=== PATIENT | female | born 1945 | race Asian ===

== ENCOUNTER 2019-06-28 02:08 | Emergency (ER) | payer OTHER ==
--- NOTE | 2019-06-28 02:17 | PDOC ---
History of Present Illness - General Chief Complaint: Injury Stated Complaint: FALL Time Seen by Provider: 06/28/19 02:16 - History of Present Illness Initial Comments: 06/28/19 04:22 73 year old with no past medical history fell down stairs has nosebleed and nasal bridge pain FAST- negative Past History - Past Medical History Allergies/Adverse Reactions: Allergies Allergy/AdvReac Type Severity Reaction Status Date / Time No Known Allergies Allergy Verified 06/28/19 02:24 Home Medications: Ambulatory Orders Pseudoephedrine HCl [Sudafed] 60 mg PO BID #30 tablet 06/28/19 *DC/Admit/Observation/Transfer Diagnosis at time of Disposition: Nasal bone fractures - Discharge Dispostion Disposition: HOME Condition at time of disposition: Fair Decision to Admit order: No - Prescriptions Prescriptions: Pseudoephedrine HCl [Sudafed] 60 mg PO BID #30 tablet - Referrals Referrals: Yoandy Carbajal MD [Staff Physician] - - Patient Instructions Printed Discharge Instructions: Skull and Facial Fracture Additional Instructions: You were seen in the ED for complaints of nasal bone pain after a fall In the ED you were evaluated with imaging. Your results were significant for a nasal bridge fracture There does not appear to be an acute need for immediate hospitalization. You are advised to follow up with your Primary Care Physician within 1 week. You were given a referral to ENT Specialist. Take over the counter Tylenol and Motrin. Return to the ED immediately if you experience continued nose bleed, difficulty breathing - Post Discharge Activity
[2019-06-28] MEDS ORDERED: ACETAMINOPHEN 325 MG TABLET (FP) PO ONE ×2 (02:26)
[2019-06-28] MEDS ORDERED: ACETAMINOPHEN 325 MG TABLET (FP) ONE (02:34)
[2019-06-28 02:42] VITALS: BMI 22.6
--- NOTE | 2019-06-28 03:07 | PDOC ---
Attending Attestation - Resident Resident Name: Poly Wren - ED Attending Attestation I have performed the following: I have examined & evaluated the patient, The case was reviewed & discussed with the resident, I agree w/resident's findings & plan - HPI HPI: 06/28/19 03:08 Pt fell down 15 basement steps. Walked up and woke her grandson and he brought her to the ER. - Physicial Exam PE: 06/28/19 05:12 Agree with resident exam 06/28/19 05:45 Pt has no septal hematome 06/28/19 05:45 HEENT normal except for her depressed nasal bone fracture. - Medical Decision Making 06/28/19 03:07 Pt has nosebleed and likely nasal fracture after falling down basement steps. 06/28/19 05:12 Patient Name: JOLLY FAIRCHILD THIS IS A PRELIMINARY REPORT FROM [facility] DATE OF SERVICE: 2019-06-28 04:32:33 IMAGES: 142 EXAM: CERVICAL SPINE CT W/O CONTR / FACIAL BONES CT W/O CONTRAST / HEAD CT WITHOUT CONTRAST HISTORY: Rule out fracture COMPARISON: None. FINDINGS: CT head: The ventricular system is midline and nondilated. The sulcal pattern is normal for the patient's age. There is no bleed, mass, extra-axial fluid collection or mass effect. Nasal bridge and vomer fractures are noted. No skull fracture or skull lesion is identified. The visualized paranasal sinuses and mastoid air cells are clear. CT cervical spine:There is no fracture, subluxation, prevertebral soft tissue swelling. There are mild degenerative changes. The lung apices are clear. CT facial Bones: The intraorbital contents are intact. The sinuses and visualized mastoid air cells are well aerated than minimal scattered sinus mucosal thickening. There is a comminuted mildly depressed nasal bridge fracture. The vomer is fractured. No other fractures identified. IMPRESSION: No skull fracture or intracranial hemorrhage. No fracture of the cervical spine. Comminuted and depressed nasal bridge fracture. Vomer fracture.
[2019-06-28 06:21] VITALS: BP 148/88; PULSE 72; TEMP 97.9
== END 2019-06-28 05:55 | disposition home or self-care (01) ==
LOC: JER 02:08
DX: S02.2XXA Fracture of nasal bones, initial encounter for closed fracture (principal); W10.8XXA Fall (on) (from) other stairs and steps, initial encounter; Y93.89 Activity, other specified; Y92.018 Other place in single-family (private) house as the place of occurrence of the external cause; Y99.8 Other external cause status
CPT/HCPCS: 70450-TC; 70486-TC; 71045-TC-FY; 72125-TC; 72170-TC-FY; 99281-25

== ENCOUNTER 2023-04-16 09:46 | Emergency (ER) | payer OTHER ==
[2023-04-16 09:56] VITALS: BP 142/75; PULSE 75; RESP 18; TEMP 98; BMI 19.7
[2023-04-16] MEDS ORDERED: IBUPROFEN 600 MG TABLET (FP) PO ONE ×2 (10:13→10:24)
== END 2023-04-16 11:20 | disposition home or self-care (01) ==
LOC: JERFT 09:46
DX: M25.512 Pain in left shoulder (principal); M25.511 Pain in right shoulder; M54.2 Cervicalgia; S46.819A Strain of other muscles, fascia and tendons at shoulder and upper arm level, unspecified arm, initial encounter; V89.2XXA Person injured in unspecified motor-vehicle accident, traffic, initial encounter
CPT/HCPCS: 71046-TC-FY; 72050-TC-FY; 99283-25